=== PATIENT | female | born 1985 | race Caucasian/White ===

== ENCOUNTER 2017-03-04 03:26 | Emergency (ER) | payer MEDICAID ==
[~2017-03-04] VITALS: Ht 162.6 cm; Wt 117.0 kg
[2017-03-04 03:26] VITALS: BP_SYST 113
[2017-03-04 04:02] LABS: BILIRUBIN,URINE NEGATIVE (NEGATIVE); BLOOD, URINE NEGATIVE (NEGATIVE); CLARITY/URINE CLOUDY (CLEAR); COLOR,URINE YELLOW (YELLOW); GLUCOSE,URINE NEGATIVE (NEGATIVE); KETONES,URINE NEGATIVE (NEGATIVE); LEUKOCYTE ESTERASE ,URINE NEGATIVE (NEGATIVE); NITRITE, URINE NEGATIVE (NEGATIVE); PROTEIN URINE NEGATIVE (NEGATIVE)
[2017-03-04 04:11] LABS: BACTERIA,URINE FEW /HPF (None Seen); MUCUS,URINE None Seen /LPF (None Seen); RBC,URINE 0-3 /HPF (0-3); URINE AMORPHOUS PHOSPHATES 3+ /HPF (None Seen); WBC,URINE 0-3 /HPF (0-3)
[2017-03-04] MEDS ORDERED: MORPHINE SULFATE 10 MG/ML VIAL IVP ONE (04:30)
[2017-03-04] MEDS ORDERED: ONDANSETRON HCL 4 MG/2 ML VIAL IVP ONE (04:30)
[2017-03-04 04:37] LABS: BASOPHILS % (AUTO) 0.4 % (0.0-2.0); EOSINOPHILS # (AUTO) 0.2 K/uL (0.0-0.4); EOSINOPHILS % (AUTO) 3.6 % (0.0-4.0); HEMATOCRIT 39.4 % (36-48); HEMOGLOBIN 12.7 g/dL (12.0-16.0); LYMPHOCYTES # (AUTO) 1.9 K/uL (1.0-5.5); LYMPHOCYTES % (AUTO) 29.8 % (20.5-51.5); MEAN CORPUSCULAR HEMOGLOBIN 26 pg (27-31); MEAN CORPUSCULAR HGB CONC 32 % (32-36); MEAN CORPUSCULAR VOLUME 81 fL (79.0-98.0); MONOCYTES # (AUTO) 0.3 K/uL (0.0-1.0); MONOCYTES % (AUTO) 4.5 % (1.7-9.3); NEUTROPHILS # (AUTO) 4.1 K/uL (1.8-7.7); NEUTROPHILS % (AUTO) 61.7 % (40.0-70.0); PLATELET COUNT (AUTO) 273 K/uL (130-430); RED BLOOD CELL COUNT(AUTO) 4.85 MIL/uL (4.2-6.2); RED CELL DISTRIBUTION WIDTH 13.2 % (9.0-15.0); WHITE BLOOD COUNT (AUTO) 6.5 K/uL (4.8-10.8)
[2017-03-04 04:44] LABS: CALCIUM 8.8 mg/dL (8.4-11.0); CREATININE 0.98 mg/dL (0.55-1.30); POTASSIUM 3.9 mmol/L (3.5-5.1)
[2017-03-04 04:48] LABS: ALBUMIN 3.5 g/dL (3.4-4.8); TOTAL BILIRUBIN 0.4 mg/dL (0.0-1.0); TOTAL PROTEIN, SERUM 7.5 g/dL (6.4-8.3)
[2017-03-04 06:25] VITALS: BP_SYST 112
== END 2017-03-04 06:25 | disposition home or self-care (01) ==
LOC: SED 03:26
DX: K80.80 Other cholelithiasis without obstruction (principal)
CPT/HCPCS: 36415; 76700; 80053; 81000; 81025; 82150; 83690; 85025; 96374; 96375; 99285; J2270; J2405

== ENCOUNTER 2017-05-29 10:11 | Emergency (ER) | payer SELFPAY ==
[~2017-05-29] VITALS: Ht 162.6 cm; Wt 115.7 kg
[2017-05-29 10:17] VITALS: BP_SYST 135
== END 2017-05-29 10:43 | disposition home or self-care (01) ==
LOC: SED 10:11
DX: R51 Headache (principal); M54.2 Cervicalgia; M62.838 Other muscle spasm; R11.0 Nausea; V47.5XXA Car driver injured in collision with fixed or stationary object in traffic accident, initial encounter; Y93.89 Activity, other specified; Y92.411 Interstate highway as the place of occurrence of the external cause; Y99.8 Other external cause status
CPT/HCPCS: 99283

== ENCOUNTER 2019-03-14 11:45 | Emergency (ER) | payer BC ==
[~2019-03-14] VITALS: Ht 162.6 cm; Wt 122.5 kg
[2019-03-14 11:52] VITALS: BP_SYST 125
[2019-03-14] MEDS ORDERED: AMOXICILLIN 500 MG CAPSULE PO ONE (12:30)
[2019-03-14] MEDS ORDERED: IBUPROFEN 800 MG TABLET PO ONE (12:30)
[2019-03-14 12:31] VITALS: BP_SYST 125
== END 2019-03-14 12:32 | disposition home or self-care (01) ==
LOC: SED 11:45
DX: K05.10 Chronic gingivitis, plaque induced (principal); K08.89 Other specified disorders of teeth and supporting structures
CPT/HCPCS: 99283

== ENCOUNTER 2020-02-19 06:56 | Emergency (ER) | payer BC, OTHER ==
[~2020-02-19] VITALS: Ht 162.6 cm; Wt 122.5 kg
[2020-02-19 07:00] VITALS: BP_SYST 131
--- NOTE | 2020-02-19 07:00 | NUR ---
BROUGHT BACK TO BED #7 AND TRIAGED. REPORT GIVEN TO BIENVENIDO
--- NOTE | 2020-02-19 07:10 | NUR ---
Patient presented to ER C/O right hand pain and swelling. Patien A&Ox4, ambulatory to ER, right hand swelling, bruising noted, pain 10/, denies N/V/D. Patient states right hand & wrist got smashed between heavy door & door frame.
--- NOTE | 2020-02-19 07:35 | NUR ---
ER Dr. Bonilla at bedside examining patient.
--- NOTE | 2020-02-19 07:40 | NUR ---
PT to Radiology with staff
[2020-02-19] MEDS ORDERED: KETOROLAC TROMETHAMINE 60 MG/2 ML VIAL IM ONE (08:15)
[2020-02-19 08:40] VITALS: BP_SYST 133
--- NOTE | 2020-02-19 08:40 | NUR ---
Patient given written and verbal discharge instructions and verbalizes understanding. ER MD discussed with patient the results and treatment provided. Patient in stable condition. ID arm band removed. Rx of NAPROSYN given. Patient educated on pain management and to follow up with PMD. Pain Scale 5/10 TOLERABLE FOR PT. Opportunity for questions provided and answered. Medication side effect fact sheet provided.
== END 2020-02-19 08:40 | disposition home or self-care (01) ==
LOC: SED 06:56
DX: S60.211A Contusion of right wrist, initial encounter (principal); W22.8XXA Striking against or struck by other objects, initial encounter; Y93.89 Activity, other specified; Y92.89 Other specified places as the place of occurrence of the external cause; Y99.8 Other external cause status
CPT/HCPCS: 73110; 73130; 96372; 99284; J1885

== ENCOUNTER 2021-01-05 21:05 | Observation (INO) | payer BC ==
[~2021-01-05] VITALS: Ht 162.6 cm; Wt 125.2 kg
[2021-01-05] MEDS ORDERED: LR 1,000 ML IV SCH (22:00)
[2021-01-05] MEDS ORDERED: MEPERIDINE 100 MG INJ. 100 MG/ML VIAL IM PRN (22:00)
[2021-01-05] MEDS: LR 1,000 ML IV SCH (22:24)
[2021-01-05] MEDS: MEPERIDINE 100 MG INJ. 100 MG/ML VIAL IM PRN (22:24)
[2021-01-06] MEDS: LR 1,000 ML IV SCH (02:15)
[2021-01-06] MEDS: MEPERIDINE 100 MG INJ. 100 MG/ML VIAL IM PRN (13:29)
== END 2021-01-06 18:42 | disposition home or self-care (01) ==
LOC: SPU 21:05
PROVIDERS: ADMIT Specialist; ATTEND Specialist
DX: O99.612 Diseases of the digestive system complicating pregnancy, second trimester (principal); K81.9 Cholecystitis, unspecified; O99.212 Obesity complicating pregnancy, second trimester; E66.9 Obesity, unspecified; Z3A.24 24 weeks gestation of pregnancy; Z87.19 Personal history of other diseases of the digestive system
CPT/HCPCS: 96360; 96361 ×2; 96372 ×2; G0378; J2175 ×2; J7120